=== PATIENT | female | born 1955 | race Caucasian/White ===

== ENCOUNTER 2018-03-01 08:51 | Emergency (ER) | payer MEDICARE ==
[~2018-03-01] VITALS: Ht 170.2 cm; Wt 97.1 kg
[~2018-03-01 08:51] MED LIST: ALEN70 PO; ALLO100 PO; ALLO300 PO; ATEN50; ATEN50 PO; CIPR500 PO; ESOM20; LANS15EC PO; LEVFLO500 PO; LEVOTHYROXIN PO; LEVSOD75 PO; NEXIUM PO; ONDA4ODT MM; OXYACE5T PO; PHENA200 PO; SACC250C PO; UNKNOWN BP MED; VICODIN ES 7.51 EACH; Vibramycin100 MG PO; [UNRECOGNIZED DRUG - OTHER] PO
[2018-03-01] MEDS ORDERED: DICL25ER PO (09:32)
[2018-03-01] MEDS ORDERED: CIPR500 PO (09:33)
[2018-03-01 10:29] LABS: BASOPHILS ABSOLUTE AUTO 0.04 K/mm3 (0.00-0.23); BASOPHILS PERCENT AUTO 0 % (0-2); EOSINOPHILS ABSOLUTE AUTO 0.02 K/mm3 (0.00-0.68); EOSINOPHILS PERCENT AUTO 0 % (0-6); Hemoglobin 13.1 g/dL (11.5-16.0); IMMATURE GRAN ABSOLUTE AUTO 0.12 K/mm3 (0.00-0.10); IMMATURE GRAN PERCENT AUTO 1 % (0-1); LYMPHOCYTES ABSOLUTE AUTO 1.63 K/mm3 (0.84-5.20); LYMPHOCYTES PERCENT AUTO 8 % (21-46); MONOCYTES ABSOLUTE AUTO 1.26 K/mm3 (0.16-1.47); MONOCYTES PERCENT AUTO 7 % (4-13); Mean Corpuscular HGB 29.4 pg (26.0-34.0); Mean Corpuscular HGB Conc 32.8 g/dL (31.5-36.5); Mean Corpuscular Volume 90 fL (80-100); NEUTROPHILS ABSOLUTE AUTO 16.43 K/mm3 (1.96-9.15); NEUTROPHILS PERCENT AUTO 84 % (41-73); Platelet Count 108 K/mm3 (150-400); RDW Coefficient Variation 13.8 % (11.7-14.2); RDW Standard Deviation 45.4 fL (35.1-46.3); Red Blood Cell Count 4.46 M/mm3 (3.80-5.20)
[2018-03-01 10:43] LABS: Anion Gap 7 mmol/L (6-16); Blood Urea Nitrogen 11 mg/dL (8-24); CO2, Blood 26 mmol/L (21-32); Calcium, Blood 8.6 mg/dL (8.5-10.1); Chloride, Blood 103 mmol/L (98-108); Creatinine, Blood 0.85 mg/dL (0.40-1.00); Glomerular Filtration Rate >60 (60-); Glucose, Blood 116 mg/dL (70-99); Potassium, Blood 3.6 mmol/L (3.5-5.5); Sodium, Blood 136 mmol/L (136-145)
[2018-03-01] MEDS ORDERED: Norco 5-325 Ta1 EACH PO (13:03)
[2018-03-01] MEDS ORDERED: Zofran Odt4 MG SL (13:03)
[2018-03-01] MEDS ORDERED: Flagyl500 MG PO (13:03)
== END 2018-03-01 15:40 | disposition home or self-care (01) ==
LOC: ER 08:51
PROVIDERS: Emergency Medicine
DX: K61.1 Rectal abscess (principal); Z88.1 Allergy status to other antibiotic agents; Z88.0 Allergy status to penicillin; Z88.2 Allergy status to sulfonamides; Z88.5 Allergy status to narcotic agent; Z88.7 Allergy status to serum and vaccine; Z79.899 Other long term (current) drug therapy
CPT/HCPCS: 36415; 72193; 80048; 85025; 96365; 96367; 99284-25; J0744; Q9967

== ENCOUNTER 2018-03-02 09:50 | Inpatient (IN) | payer MEDICARE ==
[~2018-03-02] VITALS: Ht 170.2 cm; Wt 98.7 kg
[~2018-03-02 09:50] MED LIST changes: +DICL25ER PO; +Flagyl500 MG PO; +Norco 5-325 Ta1 EACH PO; +Zofran Odt4 MG SL
[2018-03-02 10:46] LABS: BASOPHILS ABSOLUTE AUTO 0.05 K/mm3 (0.00-0.23); BASOPHILS PERCENT AUTO 0 % (0-2); EOSINOPHILS ABSOLUTE AUTO 0.14 K/mm3 (0.00-0.68); EOSINOPHILS PERCENT AUTO 1 % (0-6); Hematocrit 40.4 % (33.0-51.0); Hemoglobin 13.2 g/dL (11.5-16.0); IMMATURE GRAN ABSOLUTE AUTO 0.21 K/mm3 (0.00-0.10); IMMATURE GRAN PERCENT AUTO 1 % (0-1); LYMPHOCYTES ABSOLUTE AUTO 2.16 K/mm3 (0.84-5.20); LYMPHOCYTES PERCENT AUTO 11 % (21-46); MONOCYTES ABSOLUTE AUTO 1.11 K/mm3 (0.16-1.47); MONOCYTES PERCENT AUTO 6 % (4-13); Mean Corpuscular HGB 29.2 pg (26.0-34.0); Mean Corpuscular HGB Conc 32.7 g/dL (31.5-36.5); Mean Corpuscular Volume 89 fL (80-100); Mean Platelet Volume 10.5 fL (9.1-12.4); NEUTROPHILS ABSOLUTE AUTO 16.57 K/mm3 (1.96-9.15); NEUTROPHILS PERCENT AUTO 82 % (41-73); Platelet Count 159 K/mm3 (150-400); RDW Standard Deviation 46.2 fL (35.1-46.3); Red Blood Cell Count 4.52 M/mm3 (3.80-5.20); White Blood Cell Count 20.24 K/mm3 (4.00-11.30)
[2018-03-02 10:54] LABS: Bun/Creatinine Ratio 12.7 (12.0-20.0); Calcium, Blood 8.9 mg/dL (8.5-10.1); Creatinine, Blood 1.02 mg/dL (0.40-1.00); Potassium, Blood 3.5 mmol/L (3.5-5.5)
[2018-03-03 04:59] LABS: Hematocrit 35.8 % (33.0-51.0); Hemoglobin 11.2 g/dL (11.5-16.0); Mean Corpuscular HGB 28.6 pg (26.0-34.0); Mean Corpuscular HGB Conc 31.3 g/dL (31.5-36.5); Mean Platelet Volume 9.7 fL (9.1-12.4); Platelet Count 139 K/mm3 (150-400); RDW Standard Deviation 47.8 fL (35.1-46.3); Red Blood Cell Count 3.91 M/mm3 (3.80-5.20); White Blood Cell Count 10.48 K/mm3 (4.00-11.30)
[2018-03-03 05:03] LABS: Mean Corpuscular Volume 92 fL (80-100)
[2018-03-03 05:22] LABS: Anion Gap 7 mmol/L (6-16); Blood Urea Nitrogen 11 mg/dL (8-24); Bun/Creatinine Ratio 12.3 (12.0-20.0); CO2, Blood 24 mmol/L (21-32); Calcium, Blood 7.9 mg/dL (8.5-10.1); Chloride, Blood 109 mmol/L (98-108); Creatinine, Blood 0.89 mg/dL (0.40-1.00); Glomerular Filtration Rate >60 (60-); Glucose, Blood 110 mg/dL (70-99); Potassium, Blood 3.7 mmol/L (3.5-5.5); Sodium, Blood 140 mmol/L (136-145)
[2018-03-04 05:34] LABS: Hematocrit 36.6 % (33.0-51.0); Hemoglobin 11.7 g/dL (11.5-16.0); Mean Corpuscular HGB 28.5 pg (26.0-34.0); Mean Platelet Volume 9.7 fL (9.1-12.4); Platelet Count 179 K/mm3 (150-400); RDW Coefficient Variation 13.8 % (11.7-14.2); RDW Standard Deviation 44.7 fL (35.1-46.3); Red Blood Cell Count 4.11 M/mm3 (3.80-5.20); White Blood Cell Count 9.26 K/mm3 (4.00-11.30)
[2018-03-04 05:35] LABS: Mean Corpuscular Volume 89 fL (80-100)
[2018-03-04 06:11] LABS: Anion Gap 8 mmol/L (6-16); Blood Urea Nitrogen 11 mg/dL (8-24); Bun/Creatinine Ratio 13.4 (12.0-20.0); CO2, Blood 26 mmol/L (21-32); Calcium, Blood 8.5 mg/dL (8.5-10.1); Chloride, Blood 105 mmol/L (98-108); Creatinine, Blood 0.82 mg/dL (0.40-1.00); Glomerular Filtration Rate >60 (60-); Glucose, Blood 125 mg/dL (70-99); Potassium, Blood 3.9 mmol/L (3.5-5.5); Sodium, Blood 139 mmol/L (136-145)
[2018-03-05 08:44] LABS: Vancomycin, Trough 11.8 ug/mL (5.0-10.0)
[2018-03-05] MEDS ORDERED: Acidophilus La1 EACH PO (10:59)
== END 2018-03-05 13:26 | disposition home or self-care (01) | DRG 394 ==
LOC: ER 09:50 → MEDS 12:30 → ENPENDDIS 03-05 10:00 → MEDS 03-05 13:26
PROVIDERS: Emergency Medicine; Internal Medicine; Surgery
PROC: 0D9QXZX Drainage of Anus, External Approach, Diagnostic (ICD-10-PCS; principal; 2018-03-03 15:00)
DX: K61.0 Anal abscess (principal); N17.9 Acute kidney failure, unspecified; B95.62 Methicillin resistant Staphylococcus aureus infection as the cause of diseases classified elsewhere; R19.7 Diarrhea, unspecified; I10 Essential (primary) hypertension; K21.9 Gastro-esophageal reflux disease without esophagitis; D69.6 Thrombocytopenia, unspecified; Z85.850 Personal history of malignant neoplasm of thyroid; M10.9 Gout, unspecified; Z87.891 Personal history of nicotine dependence
CPT/HCPCS: 36415; 80048; 80202; 85025; 85027; 87070; 87075; 87077; 87147; 87186; 87493; 93005; 93010; 96365; 96367; 96375; 99284-25; J0744; J1100; J1650; J1885; J2001; J2250; J2405; J2710; J3010; J3370; J3480; J7030; J7050; J7120

== ENCOUNTER 2018-03-28 07:39 | Day surgery (SDC) | payer MEDICARE ==
[~2018-03-28 07:39] MED LIST changes: +Acidophilus La1 EACH PO
== END 2018-03-28 23:09 | disposition home or self-care (01) ==
LOC: WOUND 07:39
DX: L98.412 Non-pressure chronic ulcer of buttock with fat layer exposed (principal); K61.0 Anal abscess; L08.9 Local infection of the skin and subcutaneous tissue, unspecified; A49.02 Methicillin resistant Staphylococcus aureus infection, unspecified site
CPT/HCPCS: G0463

== ENCOUNTER → 2020-11-01 | Outpatient (CLI) | payer MEDICARE | END | disposition home or self-care (01) | LOC: LAB SHORT 11:30 → LAB 11:30 | DX: E78.49 Other hyperlipidemia (principal); E78.6 Lipoprotein deficiency; N89.8 Other specified noninflammatory disorders of vagina; R53.83 Other fatigue; R51.9 Headache, unspecified; R23.8 Other skin changes; G47.9 Sleep disorder, unspecified; N64.4 Mastodynia; E56.9 Vitamin deficiency, unspecified; E27.49 Other adrenocortical insufficiency; E61.1 Iron deficiency; R73.03 Prediabetes | CPT/HCPCS: 83036 ==

== ENCOUNTER → 2021-05-04 | Outpatient (CLI) | payer MEDICARE | LOC: LAB SHORT 13:35 → LAB 13:35 | DX: R30.0 Dysuria (principal) | CPT/HCPCS: 87086 ==

== ENCOUNTER → 2021-05-20 | Outpatient (CLI) | payer MEDICARE | END | disposition home or self-care (01) | LOC: LAB SHORT 07:24 | DX: B35.1 Tinea unguium (principal); L60.2 Onychogryphosis ==

== ENCOUNTER 2021-11-06 08:34 | Day surgery (SDC) | payer MEDICARE ==
[~2021-11-06] VITALS: Ht 170.2 cm; Wt 78.1 kg
[2021-11-06] MEDS ORDERED: LEVSOD150 (09:17)
--- NOTE | 2021-11-06 10:56 | NUR ---
11/06/[address] AWARE POLYP WAS UNRETRIEVED
== END 2021-11-06 10:58 | disposition home or self-care (01) ==
LOC: ORSCSDS 08:34
PROVIDERS: Surgery
PROC: 0DBM8ZX Excision of Descending Colon, Via Natural or Artificial Opening Endoscopic, Diagnostic (ICD-10-PCS; principal; 2021-11-06 09:45)
DX: Z12.11 Encounter for screening for malignant neoplasm of colon (principal); Z86.010 Personal history of colon polyps; D37.4 Neoplasm of uncertain behavior of colon; E78.5 Hyperlipidemia, unspecified; I10 Essential (primary) hypertension; E03.9 Hypothyroidism, unspecified; K21.9 Gastro-esophageal reflux disease without esophagitis; Z79.899 Other long term (current) drug therapy
CPT/HCPCS: J2704; J7120

== ENCOUNTER 2022-02-06 13:29 | Emergency (ER) | payer MEDICARE ==
[~2022-02-06] VITALS: Ht 170.2 cm; Wt 73.5 kg
[~2022-02-06 13:29] MED LIST changes: +LEVSOD150
== END 2022-02-06 16:09 | disposition home or self-care (01) ==
LOC: ER 13:29
DX: J02.9 Acute pharyngitis, unspecified (principal); I10 Essential (primary) hypertension; Z79.899 Other long term (current) drug therapy; Z88.1 Allergy status to other antibiotic agents; Z88.5 Allergy status to narcotic agent; Z88.0 Allergy status to penicillin; Z88.2 Allergy status to sulfonamides; Z88.7 Allergy status to serum and vaccine; Z88.8 Allergy status to other drugs, medicaments and biological substances
CPT/HCPCS: 71045; A9270; J1885

== ENCOUNTER 2022-03-27 07:03 | Day surgery (SDC) | payer MEDICARE ==
[~2022-03-27] VITALS: Ht 170.2 cm; Wt 72.5 kg
[2022-03-27] MEDS ORDERED: IRON18 MG (07:41)
[2022-03-27] MEDS ORDERED: FISH OIL 1,2001 EAC7 (07:41)
[2022-03-27] MEDS ORDERED: CENTRUM SILVER1 EAC2 (07:41)
== END 2022-03-27 10:03 | disposition home or self-care (01) ==
LOC: ORSCSDS 07:03
PROVIDERS: Internal Medicine Gastroenterology
PROC: 0DB58ZX Excision of Esophagus, Via Natural or Artificial Opening Endoscopic, Diagnostic (ICD-10-PCS; principal; 2022-03-27 09:00)
DX: R13.10 Dysphagia, unspecified (principal); Q39.4 Esophageal web; K21.9 Gastro-esophageal reflux disease without esophagitis; I10 Essential (primary) hypertension; K44.9 Diaphragmatic hernia without obstruction or gangrene; Z79.899 Other long term (current) drug therapy
CPT/HCPCS: 88305; C1726; J2704; J7120

== ENCOUNTER 2022-07-30 07:48 | Day surgery (SDC) | payer MEDICARE ==
[~2022-07-30] VITALS: Ht 170.2 cm; Wt 74.7 kg
[~2022-07-30 07:48] MED LIST changes: +CENTRUM SILVER1 EAC2; +FISH OIL 1,2001 EAC7; +IRON18 MG
[2022-07-30] MEDS ORDERED: ATEN25 (08:04)
[2022-07-30] MEDS ORDERED: DHEA 2525 MG (08:05)
== END 2022-07-30 10:09 | disposition home or self-care (01) ==
LOC: ORSCSDS 07:48
PROVIDERS: Internal Medicine Gastroenterology
PROC: 0D757ZZ Dilation of Esophagus, Via Natural or Artificial Opening (ICD-10-PCS; 2022-07-30)
PROC: 0DJ08ZZ Inspection of Upper Intestinal Tract, Via Natural or Artificial Opening Endoscopic (ICD-10-PCS; principal; 2022-07-30 09:15)
DX: D50.1 Sideropenic dysphagia (principal); K21.9 Gastro-esophageal reflux disease without esophagitis; I10 Essential (primary) hypertension; Z85.850 Personal history of malignant neoplasm of thyroid; Z79.899 Other long term (current) drug therapy
CPT/HCPCS: J2704; J7120

== ENCOUNTER 2022-10-27 06:47 | Day surgery (SDC) | payer MEDICARE ==
[~2022-10-27] VITALS: Ht 170.2 cm; Wt 74.4 kg
[~2022-10-27 06:47] MED LIST changes: +ATEN25; +DHEA 2525 MG
[2022-10-27] MEDS ORDERED: PROG100 (07:02)
[2022-10-27] MEDS ORDERED: ADRENAL OPTIMI1 EACH (07:05)
[2022-10-27] MEDS ORDERED: B COMPLEX FORM0.4 MG (07:05)
[2022-10-27] MEDS ORDERED: VITAMIN D325 MC3 (07:06)
[2022-10-27] MEDS ORDERED: Acerola C500 MG (07:06)
[2022-10-27] MEDS ORDERED: Vitamin A and1 EACH (07:06)
[2022-10-27] MEDS ORDERED: Calcium Carbon500 MG (07:07)
[2022-10-27 09:34] VITALS: BP 110/79
== END 2022-10-27 09:11 | disposition home or self-care (01) ==
LOC: ORSCSDS 06:47
PROVIDERS: Internal Medicine Gastroenterology
PROC: 0DJD8ZZ Inspection of Lower Intestinal Tract, Via Natural or Artificial Opening Endoscopic (ICD-10-PCS; principal; 2022-10-27 08:00)
PROC: 0DJ08ZZ Inspection of Upper Intestinal Tract, Via Natural or Artificial Opening Endoscopic (ICD-10-PCS; principal; 2022-10-27 08:00)
PROC: 0D758ZZ Dilation of Esophagus, Via Natural or Artificial Opening Endoscopic (ICD-10-PCS; principal; 2022-10-27 08:00)
DX: D50.1 Sideropenic dysphagia (principal); K44.9 Diaphragmatic hernia without obstruction or gangrene; K57.30 Diverticulosis of large intestine without perforation or abscess without bleeding; K64.8 Other hemorrhoids; K62.89 Other specified diseases of anus and rectum; R15.9 Full incontinence of feces; Z86.010 Personal history of colon polyps; K21.9 Gastro-esophageal reflux disease without esophagitis; I10 Essential (primary) hypertension; Z85.850 Personal history of malignant neoplasm of thyroid; Z79.899 Other long term (current) drug therapy
CPT/HCPCS: J2704; J7120

== ENCOUNTER → 2024-12-11 | Outpatient (CLI) | payer MEDICARE ==
[~2024-12-11] MED LIST changes: +ADRENAL OPTIMI1 EACH; +Acerola C500 MG; +B COMPLEX FORM0.4 MG; +Calcium Carbon500 MG; +PROG100; +VITAMIN D325 MC3; +Vitamin A and1 EACH
== END | disposition home or self-care (01) ==
LOC: LAB 07:59 → LAB SHORT 07:59
DX: L60.2 Onychogryphosis (principal); B35.1 Tinea unguium
CPT/HCPCS: 88305; 88312

== ENCOUNTER → 2024-12-11 | Outpatient (CLI) | payer MEDICARE | LOC: LAB SHORT 18:00 → LAB 18:00 | DX: B35.1 Tinea unguium (principal); L60.2 Onychogryphosis | CPT/HCPCS: 87102; 87220 ==